=== PATIENT | female | born 1975 | race Two or more races ===

== ENCOUNTER 2018-04-24 19:16 | Emergency (ER) | payer MEDICAID ==
[~2018-04-24] VITALS: Ht 132.1 cm; Wt 56.7 kg
[2018-04-24 19:35] VITALS: BP 155/89
[2018-04-24] MEDS ORDERED: BACLOFEN 10 MG TAB PO ONE (21:15)
[2018-04-24] MEDS ORDERED: cefTRIAXone SOD 1,000 MG VL IM ONE (21:15)
== END 2018-04-24 22:19 | disposition home or self-care (01) ==
LOC: ER 19:23
DX: H66.91 Otitis media, unspecified, right ear (principal)
CPT/HCPCS: 96372; 99283; J0696

== ENCOUNTER 2018-05-09 17:34 | Emergency (ER) | payer MEDICAID ==
[~2018-05-09] VITALS: Ht 157.5 cm; Wt 56.2 kg
[2018-05-09 18:00] VITALS: BP 145/83
== END 2018-05-09 22:46 | disposition home or self-care (01) ==
LOC: ER 17:34
DX: H60.91 Unspecified otitis externa, right ear (principal)

== ENCOUNTER 2018-11-16 01:50 | Emergency (ER) | payer MEDICAID ==
[~2018-11-16] VITALS: Ht 154.9 cm; Wt 59.9 kg
[2018-11-16 03:49] VITALS: BP 148/87
[2018-11-16] MEDS: methylPREDNISolone SOD SUCC 125 MG/2 ML VL IM ONE (03:59)
== END 2018-11-16 04:04 | disposition home or self-care (01) ==
LOC: ER 01:50
DX: T78.40XA Allergy, unspecified, initial encounter (principal); H11.32 Conjunctival hemorrhage, left eye; X58.XXXA Exposure to other specified factors, initial encounter
CPT/HCPCS: 96372; 99283; J2930

== ENCOUNTER 2020-04-16 03:29 | Emergency (ER) | payer MEDICAID ==
[~2020-04-16] VITALS: Ht 160 cm; Wt 56.7 kg
[2020-04-16] MEDS ORDERED: MECLIZINE HCL 25 MG TAB ONE (03:55)
[2020-04-16] MEDS ORDERED: MECLIZINE HCL 25 MG TAB PO ONE (04:00)
[2020-04-16 05:50] LABS: Basophils # (auto) 0 10 ^3/uL (0-0.2); Basophils % (auto) 0.1 % (0.0-2.0); Eosinophils # (auto) 0 10 ^3/uL (0-0.8); Eosinophils % (auto) 0.3 % (0.0-7.0); Hematocrit 43.8 % (36.0-46.0); Hemoglobin 15.1 g/dL (12.2-16.2); Lymphocytes # (auto) 1.1 10 ^3/uL (0.4-5.4); Lymphocytes % (auto) 17.7 % (10.0-50.0); Mean Corpuscular Hemoglobin 31.8 pg (28.0-32.0); Mean Corpuscular Hgb Conc. 34.5 g/dL (32.0-36.0); Mean Corpuscular Volume 92.2 fL (80.0-100.0); Monocytes # (auto) 0.4 10 ^3/uL (0-1.3); Monocytes % (auto) 5.9 % (0.0-12.0); Neutrophils # (auto) 4.7 10 ^3/uL (1.6-8.6); Nucleated Red Blood Cells % 0.1 %; Platelet Count (auto) 219 10^3/uL (140-450); Red Blood Cells 4.76 10^6/uL (4.0-5.20); Red Cell Distribution Width 12.6 % (11.8-14.3); White Blood Cell 6.2 10^3/uL (4.4-10.8)
[2020-04-16 06:30] LABS: Albumin 3.7 g/dL (3.4-5.0); Calcium 8.8 mg/dL (8.5-10.1); Magnesium 2.4 mg/dL (1.6-2.6); Potassium 3.8 mmol/L (3.5-5.1)
[2020-04-16 06:34] LABS: BUN/Creatinine Ratio 13.7; Bilirubin, Total 0.2 mg/dL (0.2-1.0); Total Protein 7.7 g/dL (6.4-8.2)
[2020-04-16] MEDS ORDERED: SODIUM CHLORIDE 0.9% 1,000 ML IV ONE ×2 (07:00)
[2020-04-16 08:56] VITALS: BP 125/77
== END 2020-04-16 09:51 | disposition home or self-care (01) ==
LOC: ER 03:41
DX: R42 Dizziness and giddiness (principal); H93.19 Tinnitus, unspecified ear
CPT/HCPCS: 36415; 70450; 80053; 83735; 85025; 93005; 96360; 99285; J7030; J8597

== ENCOUNTER 2021-04-03 14:45 | Emergency (ER) | payer MEDICAID ==
[~2021-04-03] VITALS: Ht 152.4 cm; Wt 63.5 kg
[2021-04-03 17:14] VITALS: BP 129/85
== END 2021-04-03 17:29 | disposition home or self-care (01) ==
LOC: ER 14:45
DX: J01.90 Acute sinusitis, unspecified (principal)
CPT/HCPCS: 71045

== ENCOUNTER 2022-10-04 19:56 | Emergency (ER) | payer MEDICAID ==
[~2022-10-04] VITALS: Ht 144.8 cm; Wt 61.5 kg
[2022-10-04 21:32] LABS: Urine Bacteria NONE SEEN /hpf (None Seen); Urine Blood 3+ /uL (Negative); Urine Specific Gravity 1.013 (1.001-1.035); Urine WBC 227 /hpf (0 - 5)
[2022-10-04 22:10] VITALS: BP 158/94
[2022-10-04] MEDS ORDERED: cefTRIAXone SOD 1,000 MG VL IM ONE (22:30)
[2022-10-04] MEDS ORDERED: NITR-87 PO ×2 (22:54→23:25)
== END 2022-10-05 00:20 | disposition home or self-care (01) ==
LOC: ER 19:56
DX: N39.0 Urinary tract infection, site not specified (principal)
CPT/HCPCS: 81001; 96372; 99283; J0696

== ENCOUNTER 2024-05-05 20:47 | Inpatient (IN) | payer MEDICAID, OTHER ==
[~2024-05-05] VITALS: Ht 162.6 cm; Wt 62.8 kg
[~2024-05-05 20:47] MED LIST: NITR-87 PO
--- NOTE | 2024-05-05 21:23 | ED.PDOC ---
GI ASSESSMENT HPI Comments 49 year old female came to ER due to abdominal pain. Patient states she is currently being treated for UTI with Augmentin. States she is now on her 8th day of a 12 day regimen. For the past 3 days, she has been having abdominal pain, epigastric associated with abdominal distention especially after meals or whenever she takes her antibiotics. She denies any nausea, vomiting or changes in bowel habits. Denies any abdominal surgeries, Chief Complaint: Abdominal Pain Time Seen by MD: 21:22 Primary Care Provider: UNKNOWN Reviewed Notes: Nurses Notes Allergies: Coded Allergies: NO KNOWN ALLERGIES (Unverified , 04/24/18) Home Meds Active Scripts Nitrofurantoin Monohydrate Mac (Macrobid) 100 Mg Cap, 100 MG PO BID for 5 Days, #10 CAP Prov:BRO BANUELOS 10/04/22 Information Source: Patient Mode of Arrival: Ambulatory Timing: Days Duration: Intermittent Prehospital treatment: None Quality: Aching Vomitus: None Stool: Normal Severity: Moderate Recent: Antibiotics Recent Hx of: None Pain Location: Epigastric Modifying Factors: Nothing Associated sign and symptoms: Abdominal Pain Past Medical History PAST MEDICAL HISTORY: UTI'S Surgical History: Denies all surgeries BANKING PIN ADJUSTER History: No Pertinent BANKING PIN ADJUSTER History Family History Family History: Reviewed,noncontributory to illness Social History Smoker: Non-Smoker Alcohol: Denies ETOH Use Drugs: Denies Drug Use Lives In: Home Constitutional: denies: chills, diaphoresis, fatigue, fever, malaise, sweats, weakness, others EENTM: denies: blurred vision, double vision, ear bleeding, ear discharge, ear drainage, ear pain, ear ringing, eye pain, eye redness, hearing loss, mouth pain, mouth swelling, nasal discharge, nose bleeding, nose congestion, nose pain, photophobia, tearing, throat pain, throat swelling, voice changes, others Respiratory: denies: cough, hemoptysis, orthopnea, SOB at rest, shortness of breath, SOB with excertion, stridor, wheezing, others Cardiovascular: denies: chest pain, dizzy spells, diaphoresis, Dyspnea on exertion, edema, irregular heart beat, left arm pain, lightheadedness, palpitations, PND, syncope, others Gastrointestinal: reports: abdomen distended, abdominal pain; denies: blood streaked bowels, constipated, diarrhea, dysphagia, difficulty swallowing, hematemesis, melena, nausea, poor appetite, poor fluid intake, rectal bleeding, rectal pain, vomiting, others Neurological: denies: dizziness, fainting, headache, left sided numbness, left sided weakness, numbness, paresthesia, pre-existing deficit, right sided numbness, right sided weakness, seizure, speech problems, tingling, tremors, weakness, others Musculoskeletal: denies: back pain, gout, joint pain, joint swelling, muscle pain, muscle stiffness, neck pain, others Integumetry: denies: bruises, change in color, change in hair/nails, dryness, laceration, lesions, lumps, rash, wounds, others Allergic/Immunocompromised: denies: Difficulty Healing, Frequent Infections, Hives, Itching, others Hematologic/Lymphatic: denies: anemia, blood clots, easy bleeding, easy bruising, swollen glands, others Endocrine: denies: excessive hunger, excessive sweating, excessive thirst, excessive urination, flushing, intolerance to cold, intolerance to heat, unexplained weight gain, unexplained weight loss, others Psychiatric: denies: anxiety, bipolar disorder, depression, hopeless, panic disorder, schizophrenia, sleepless, suicidal, others Physical Exam General Appearance: No Apparent Distress, Normal HEENT: Normal ENT Inspection, Pharynx Normal, TMs Normal Neck: Full Range of Motion, Non-Tender, Normal, Normal Inspection Respiratory: Chest Non-Tender, Lungs Clear, No Accessory Muscle Use, No Respiratory Distress, Normal Breath Sounds Cardiovascular: No Edema, No JVD, No Murmur, No Gallop, Normal Peripheral Pulses, Regular Rate/Rhythm Breast Exam: Deferred Gastrointestinal: Distended, Epigastric, No Organomegaly, No Pulsatile Mass, Normal Bowel Sounds, Soft, Tenderness Genitalia: Deferred Pelvic: Deferred Rectal: Deferred Extremities: No calf tenderness, Normal capillary refill, Normal inspection, Normal range of motion, Non-tender, No pedal edema Musculoskeletal : Apperance: Normal Neurologic: Alert, multicraft operator II-XII nml as Tested, No Motor Deficits, Normal Affect, Normal Mood, No Sensory Deficits Cerebellar Function: Normal Reflexes: Normal Skin: Dry, Normal Color, Warm Lymphatic: No Adenopathy Was a procedure done? Was a procedure done?: No GI differential Dx Differential Diagnosis: Cholecystitis, Diverticular disease, Gastritis/PUD, Gastroenteritis, Pancreatitis, UTI, Urolithiasis, Electrolyte Imbalance, Food Poisoning X-Ray, Labs, Meds, VS Vital Signs Date Time Temp Pulse Resp B/P (MAP) Pulse Ox O2 Delivery O2 Flow Rate FiO2 05/06/24 00:07 98.4 84 16 147/81 (103) 99 98.4 05/06/24 00:07 84 16 99 Room Air 05/05/24 21:20 98.4 84 18 156/97 (116) 99 Lab Test 05/05/24 21:20 05/05/24 21:07 Range/Units Urine Color Colorless Yellow Urine Clarity Clear Clear Urine pH 7.0 5.0-9.0 Urine Specific [place] 1.009 1.001-1.035 Urine Protein Negative Negative Urine Ketones Negative Negative Urine Blood 1+ H Negative /uL Urine Nitrite Negative Negative Urine Bilirubin Negative Negative Urine Urobilinogen Normal Negative mg/dL Urine Leukocyte Esterase Negative Negative /uL Urine RBC 8 0 - 4 /hpf Urine WBC 1 0 - 5 /hpf Urine Squamous Epithelial Cells Few <5 /hpf Urine Bacteria Few H None Seen /hpf Urine Glucose Normal Normal mg/dL White Blood Count 9.6 4.4-10.8 10^3/uL Red Blood Count 4.39 4.0-5.20 10^6/uL Hemoglobin 14.4 12.2-16.2 g/dL Hematocrit 40.4 36.0-46.0 % Mean Corpuscular Volume 92.1 80.0-100.0 fL Mean Corpuscular Hemoglobin 32.9 H 28.0-32.0 pg Mean Corpuscular Hemoglobin Concent 35.7 32.0-36.0 g/dL Red Cell Distribution Width 12.6 11.8-14.3 % Platelet Count 305 140-450 10^3/uL Mean Platelet Volume 8.0 6.9-10.8 fL Neutrophils (%) (Auto) 58.7 37.0-80.0 % Lymphocytes (%) (Auto) 31.7 10.0-50.0 % Monocytes (%) (Auto) 6.9 0.0-12.0 % Eosinophils (%) (Auto) 2.2 0.0-7.0 % Basophils (%) (Auto) 0.5 0.0-2.0 % Neutrophils # (Auto) 5.6 1.6-8.6 10 ^3/uL Lymphocytes # (Auto) 3.1 0.4-5.4 10 ^3/uL Monocytes # (Auto) 0.7 0-1.3 10 ^3/uL Eosinophils # (Auto) 0.2 0-0.8 10 ^3/uL Basophils # (Auto) 0 0-0.2 10 ^3/uL Nucleated Red Blood Cells 0.2 % Sodium Level 143 136-145 mmol/L Potassium Level 3.2 L 3.5-5.1 mmol/L Chloride Level 108 H 98-107 mmol/L Carbon Dioxide Level 26 20-31 mmol/L Anion Gap 9 5-15 Blood Urea Nitrogen 11 9-23 mg/dL Creatinine 0.93 0.550-1.02 mg/dL Glomerular Filtration Rate Calc 76 >90 mL/min BUN/Creatinine Ratio 11.8 10.0-20.0 Serum Glucose 106 74-106 mg/dL Calcium Level 9.5 8.7-10.4 mg/dL Total Bilirubin 0.3 0.2-1.0 mg/dL Aspartate Amino Transferase (AST) 19 13-40 U/L Alanine Aminotransferase (ALT) 20 7-40 U/L Alkaline Phosphatase 65 46-116 U/L Total Protein 6.9 5.7-8.2 g/dL Albumin 4.0 3.2-4.8 g/dL Lipase 46 12-53 U/L Current Medications Medications (Trade) Dose Ordered Sig/Debbie Route Start Time Stop Time Status Last Admin Sodium Chloride 1,000 ml @ 1,000 mls/hr Q1H ONCE IV 05/05/24 21:30 05/05/24 22:29 DC 05/06/24 00:08 Ondansetron HCl (Zofran) 4 mg ONCE ONCE IV 05/05/24 21:30 05/05/24 21:31 DC 05/06/24 00:09 Famotidine (Pepcid Injection) 20 mg ONCE ONCE IV 05/05/24 21:30 05/05/24 21:31 DC 05/06/24 00:09 Ketorolac Tromethamine (Toradol Injection) 15 mg ONCE ONCE IV 05/05/24 21:30 05/05/24 21:31 DC 05/06/24 00:10 Time of 1ST Reevaluation: 21:16 Reevaluation 1ST: Unchanged Patient Education/Counseling: Diagnosis, Treatment Family Education/Counseling: No Family Present Departure 1 Departure Time of Disposition: 04:31 (Patient presented with abdominal pain that was concerning for possible appendicits, gastritis, cholecystitis, colitis, gastroenteritis, sbo, or orther possible surgical emergency. Data: 1. I ordered and reviewed the result of at least 3 labs including a CBC, BMP, and Urinalysis. 2. I independently interpreted the following tests: CT Abdoment and Pelvis is concerning for obstructiong ureteral strone .Risk:This patient has a high risk of morbidity due to further diagnostic testing or treatment and may suffer from an acute abdominal process disorder. Workup reveals and patient should be admitted for further workup. and possible expert consultation. ) Impression: Primary Impression: Ureteral stone with hydronephrosis Disposition: ADMITTED INPATIENT Admit to: Med Surg Condition: Serious Critical Care Note Critical Care Time?: Yes Critical care comment: Intractable abdominal pain Authorized and Performed by: Lizzette Zamudio MD Total critical care time: Approximately 39 minutes Due to a high probability of clinically significant, life threatening deter ioration, the patient required my highest level of preparedness to intervene emergently and I personally spent this critical care time directly and personally managing the patient. This critical care time included obtaining a history; examining the patient; pulse oximetry; ordering and review of studies; arranging urgent treatment with development of a management plan; evaluation of patient's response to treatment; frequent reassessment; and, discussions with other providers. This critical care time was performed to assess and manage the high probability of imminent, life-threatening deterioration that could result in multi-organ fa ilure. It was exclusive of separately billable procedures and treating other patients and teaching time. Please see my other sections and the rest of the note for further information on patient assessment and treatment. Stability Stability form required: No Heart Score Heart Score: Heart Score Response (Comments) Value History N/A 0 EKG N/A 0 Age N/A 0 Risk Factors N/A 0 Troponin N/A 0 Total 0 I personally scribed for LIZZETTE ZAMUDIO MD ([email or web address]) on 05/05/24 at 21:23. Electronically submitted by Kem Sahni ([email or web address]). LIZZETTE ZAMUDIO MD May 05, 2024 21:23
[2024-05-05 21:51] LABS: Basophils # (auto) 0 10 ^3/uL (0-0.2); Basophils % (auto) 0.5 % (0.0-2.0); Eosinophils # (auto) 0.2 10 ^3/uL (0-0.8); Eosinophils % (auto) 2.2 % (0.0-7.0); Hematocrit 40.4 % (36.0-46.0); Hemoglobin 14.4 g/dL (12.2-16.2); Lymphocytes # (auto) 3.1 10 ^3/uL (0.4-5.4); Lymphocytes % (auto) 31.7 % (10.0-50.0); Mean Corpuscular Hemoglobin 32.9 pg (28.0-32.0); Mean Corpuscular Hgb Conc. 35.7 g/dL (32.0-36.0); Mean Corpuscular Volume 92.1 fL (80.0-100.0); Monocytes # (auto) 0.7 10 ^3/uL (0-1.3); Monocytes % (auto) 6.9 % (0.0-12.0); Neutrophils # (auto) 5.6 10 ^3/uL (1.6-8.6); Neutrophils % (auto) 58.7 % (37.0-80.0); Nucleated Red Blood Cells % 0.2 %; Platelet Count (auto) 305 10^3/uL (140-450); Red Blood Cells 4.39 10^6/uL (4.0-5.20); Red Cell Distribution Width 12.6 % (11.8-14.3); White Blood Cell 9.6 10^3/uL (4.4-10.8)
[2024-05-05 21:54] LABS: Urine Bacteria FEW /hpf (None Seen); Urine Blood 1+ /uL (Negative); Urine Clarity Clear (Clear); Urine Color Colorless (Yellow); Urine Protein, UAD Negative (Negative); Urine Specific Gravity 1.009 (1.001-1.035); Urine Urobilinogen Normal (Negative); Urine WBC 1 /hpf (0 - 5)
[2024-05-05 22:06] LABS: Alanine Aminotransferase 20 U/L (7-40); Alkaline Phosphatase 65 U/L (46-116); Aspartate Aminotransferase 19 U/L (13-40); BUN/Creatinine Ratio 11.8 (10.0-20.0); Blood Urea Nitrogen 11 mg/dL (9-23); Calcium 9.5 mg/dL (8.7-10.4); Chloride 108 mmol/L (98-107); Glucose 106 mg/dL (74-106); Lipase 46 U/L (12-53); Potassium 3.2 mmol/L (3.5-5.1); Sodium 143 mmol/L (136-145)
[2024-05-05 22:07] LABS: Bilirubin, Total 0.3 mg/dL (0.2-1.0); Total Protein 6.9 g/dL (5.7-8.2)
[2024-05-05 22:14] LABS: Anion Gap 9 (5-15); Carbon Dioxide 26 mmol/L (20-31)
[2024-05-06] VITALS (8 sets, daily range): BP systolic 100–139; BP diastolic 63–97; PULSE 64–99; RESP 18–19; TEMP 97.7–98.3; O2SAT 97–100
[2024-05-06] MEDS: SODIUM CHLORIDE 0.9% 1,000 ML IV ONE (00:08)
[2024-05-06] MEDS: FAMOTIDINE (10MG/ML) 2ML VL IV ONE (00:09)
[2024-05-06] MEDS: ONDANSETRON HCL 4 MG/2 ML VIAL IV ONE (00:09)
[2024-05-06] MEDS: KETOROLAC TROMETH 30 MG/ML 1ML VIAL IV ONE (00:10)
--- NOTE | 2024-05-06 03:06 | DVH ---
Examination: KUB Clinical Indication: abdominal pain. Comparison: None. Technique: Single frontal view of the abdomen was obtained. Findings: The bowel gas pattern appears unremarkable. No overt pneumoperitoneum is noted. An elongated 11 x 6 mm radiopacity adjacent to the transverse process of the L3 vertebra probable rig ht renal pelvic or proximal ureteric calculus. Another 8 mm radiopacity probably in the region of th e left renal lower pole calyx. Another differential could be fecalith. No organomegaly. There is no acute osseous abnormality. Impression: An elongated 11 x 6 mm radiopacity adjacent to the transverse process of the L3 vertebra probable right renal pelvic or proximal ureteric calculus. Another 8 mm radiopacity probably in the region of the left renal lower pole calyx. Another differential could be fecalith. No obvious radi opacity in the region of the urinary bladder. Suggest further evaluation with noncontrast CT abdomen . Nonobstructive bowel gas pattern. Electronically Signed 05/06/2024 02:57 Idalia Tsai
--- NOTE | 2024-05-06 04:18 | DVH ---
Examination: ABPL CLINICAL INDICATION: better evaluate x-ray findings COMPARISON: None. CONTRAST USED: None. TECHNIQUE: A plain CT study of the abdomen and pelvis is performed. The examination was performed w ith [address] scan done according to ALARA (As Low as Reasonably Achievable). Multiplana r reconstructions were obtained. FINDINGS: CT ABDOMEN: Lung Base: The evaluation of lung bases demonstrates no focal infiltrates or pleural effusion. Plating Department Helper obasal dependent densities are seen in both lungs. Unenhanced Liver: The liver is normal in size. Mild hepatic steatosis. There is no intrahepatic bilia ry radicle dilatation. Gallbladder: The gallbladder is distended and shows a 23 mm sized hyperdense lamellated calculus wit hin. The common bile duct is not dilated. Unenhanced Pancreas: The pancreas is normal in size and shape. No focal lesion is seen within. Th e peripancreatic fat-planes are normal. Unenhanced Spleen: The spleen is normal in size and does not show any focal abnormality. Retroperitoneum: Both adrenal glands are normal in size and morphology in this unenhanced CT scan. There is no significant retroperitoneal lymphadenopathy. The kidneys are normal in size with no hydr onephrosis. A 6 mm obstructing calculus is seen in the right upper ureter causing mild upstream hydro ureteronephrosis. Mild perinephric fat stranding is noted on the right side. Vessels: Aorta, IVC and the mesenteric vessels cannot be commented in this unenhanced CT scan. Stomach and Bowel: The bowel loops are unremarkable. There is no ascites. Small paraumbilical herni a is noted containing omental fat, size of the defect is 6 mm. Skeletal System: Mild degenerative changes are seen in the thoracolumbar spine. CT PELVIS: Appendix: The appendix is unremarkable in appearance. Colon: Multiple tiny diverticuli are seen along the ascending, transverse, descending, sigmoid colon and rectum. Bladder: The urinary bladder is unremarkable. Pelvic Organs: Uterus and both ovaries appear normal. No pelvic lymphadenopathy is identified. No abn ormal fluid collection is seen. IMPRESSION: 1. No abdominal mass or adenopathy. 2. No ascites. 3. No free air or inflammatory changes. 4. Obstructing right upper ureteric calculus causing mild back pressure changes. 5. Mild hepatic steatosis. 6. Small paraumbilical hernia is noted containing omental fat. 7. Colonic diverticulosis without evidence of diverticulitis. 8. Cholelithiasis without evidence of cholecystitis. Electronically Signed 05/06/2024 04:08 Idalia Tsai
[2024-05-06] MEDS: MORPHINE SULFATE 4 MG/ML SYR/VIAL IV ONE (04:30)
[2024-05-06] MEDS ORDERED: ONDANSETRON HCL 4 MG/2 ML VIAL IV PRN (06:30)
[2024-05-06] MEDS ORDERED: MORPHINE SULFATE INJ 2 MG/ml SYRG IV PRN ×2 (06:30)
[2024-05-06] MEDS ORDERED: ACETAMINOPHEN 325 MG TAB PO PRN (06:30)
[2024-05-06] MEDS ORDERED: NITROGLYCERIN 0.4 MG SL TAB SL PRN (06:30)
--- NOTE | 2024-05-06 06:34 | DVHHP2 ---
Admitting Diagnosis: Subjective: Carmen Bradshaw, a 49-year-old female, presents with a chief complaint of abdominal pain. She reports that the pain has been present for the past three days, primarily in the epigastric region, and is accompanied by some abdominal distension. The pain worsens after meals. She denies experiencing any nausea, vomiting, or recent abdominal surgeries. Carmen recently began a 12-day course of Augmentin for a urinary tract infection, which she has been taking for the past eight days. Her past medical history is significant for urinary tract infections, but she has no significant past surgical history. She denies the use of alcohol or other drugs. Allergies: Coded Allergies: NO KNOWN ALLERGIES (Unverified , 04/24/18) Home Meds Active Scripts Nitrofurantoin Monohydrate Mac (Macrobid) 100 Mg Cap, 100 MG PO BID for 5 Days, #10 CAP Prov:LAKISHABRO Kamilla MIXOLOGIST 10/04/22 Vital Signs Vital Signs Date Time Temp Pulse Resp B/P (MAP) Pulse Ox O2 Delivery O2 Flow Rate FiO2 05/06/24 05:49 97.7 80 18 137/83 (101) 99 97.7 05/06/24 00:07 Room Air Physical Exam Objective: - Vital Signs: - Temperature: 98.4F - Pulse: 84 bpm, later noted as 99 bpm - Respiratory rate: 16 breaths per minute - Blood pressure: 147/81 mmHg - Physical Examination: - General: 49-year-old female presenting with abdominal pain - Abdomen: Epigastric pain, distension, pain exacerbated post meals - Review of Systems: 14 organ systems reviewed, all negative - Diagnostic Test Results and Labs: - Laboratory results: N/A - Imaging results: N/A - Potassium level: 3.2 (date of lab test not documented) Results Labs Test 05/05/24 21:20 05/05/24 21:07 Range/Units Urine Color Colorless Yellow Urine Clarity Clear Clear Urine pH 7.0 5.0-9.0 Urine Specific [place] 1.009 1.001-1.035 Urine Protein Negative Negative Urine Ketones Negative Negative Urine Blood 1+ H Negative /uL Urine Nitrite Negative Negative Urine Bilirubin Negative Negative Urine Urobilinogen Normal Negative mg/dL Urine Leukocyte Esterase Negative Negative /uL Urine RBC 8 0 - 4 /hpf Urine WBC 1 0 - 5 /hpf Urine Squamous Epithelial Cells Few <5 /hpf Urine Bacteria Few H None Seen /hpf Urine Glucose Normal Normal mg/dL White Blood Count 9.6 4.4-10.8 10^3/uL Red Blood Count 4.39 4.0-5.20 10^6/uL Hemoglobin 14.4 12.2-16.2 g/dL Hematocrit 40.4 36.0-46.0 % Mean Corpuscular Volume 92.1 80.0-100.0 fL Mean Corpuscular Hemoglobin 32.9 H 28.0-32.0 pg Mean Corpuscular Hemoglobin Concent 35.7 32.0-36.0 g/dL Red Cell Distribution Width 12.6 11.8-14.3 % Platelet Count 305 140-450 10^3/uL Mean Platelet Volume 8.0 6.9-10.8 fL Neutrophils (%) (Auto) 58.7 37.0-80.0 % Lymphocytes (%) (Auto) 31.7 10.0-50.0 % Monocytes (%) (Auto) 6.9 0.0-12.0 % Eosinophils (%) (Auto) 2.2 0.0-7.0 % Basophils (%) (Auto) 0.5 0.0-2.0 % Neutrophils # (Auto) 5.6 1.6-8.6 10 ^3/uL Lymphocytes # (Auto) 3.1 0.4-5.4 10 ^3/uL Monocytes # (Auto) 0.7 0-1.3 10 ^3/uL Eosinophils # (Auto) 0.2 0-0.8 10 ^3/uL Basophils # (Auto) 0 0-0.2 10 ^3/uL Nucleated Red Blood Cells 0.2 % Sodium Level 143 136-145 mmol/L Potassium Level 3.2 L 3.5-5.1 mmol/L Chloride Level 108 H 98-107 mmol/L Carbon Dioxide Level 26 20-31 mmol/L Anion Gap 9 5-15 Blood Urea Nitrogen 11 9-23 mg/dL Creatinine 0.93 0.550-1.02 mg/dL Glomerular Filtration Rate Calc 76 >90 mL/min BUN/Creatinine Ratio 11.8 10.0-20.0 Serum Glucose 106 74-106 mg/dL Calcium Level 9.5 8.7-10.4 mg/dL Total Bilirubin 0.3 0.2-1.0 mg/dL Aspartate Amino Transferase (AST) 19 13-40 U/L Alanine Aminotransferase (ALT) 20 7-40 U/L Alkaline Phosphatase 65 46-116 U/L Total Protein 6.9 5.7-8.2 g/dL Albumin 4.0 3.2-4.8 g/dL Lipase 46 12-53 U/L Plan Assessment & Plan: Assessment and Plan: 1. Abdominal pain and epigastric distension - Continue monitoring the patient's symptoms and response to treatment - Consider further evaluation if pain persists or worsens 2. Urinary tract infection (UTI) - Currently on Augmentin for 12-day regimen (day 8) - Start patient on IV antibiotics for better control - Monitor for improvement and adjust treatment as needed 3. Urethral stone with hydronephrosis - Admit patient to the hospital for further management - Obtain urology consult for evaluation and treatment options 4. Dehydration - Start patient on IV hydration to address fluid imbalance - Monitor fluid intake and output, and adjust treatment as needed 5. Hypokalemia - Patient's potassium level is 3.2, initiate potassium replacement therapy - Monitor potassium levels and adjust treatment as needed 6. Prognosis - Guarded prognosis, continue to monitor patient's response to treatment and overall condition 7. Past medical and surgical history - Significant for UTI, non-significant surgical history - Family history non-contributory, social history negative for alcohol or drug use 8. Physical examination and laboratory findings - Vital signs: Temperature 98.4, pulse 84, respiratory rate 16, blood pressure 147/81, pulse oximetry 99 - 14-organ review of systems negative, 12-organ physical examination non- significant - Review and monitor laboratory results and imaging studies as needed Plan discussed with: Patient JELENA AVALOS MD May 06, 2024 06:34
[2024-05-06] MEDS: TAMSULOSIN HYDROCHLORIDE 0.4 MG CAP PO ONE (06:38)
[2024-05-06] MEDS: SODIUM CHLORIDE 0.9% 1,000 ML IV SCH (06:41)
[2024-05-06] MEDS: HYDROcodone-ACET 5/325MG TAB PO PRN (14:08)
[2024-05-06] MEDS: TAMSULOSIN HYDROCHLORIDE 0.4 MG CAP PO SCH (18:02)
--- NOTE | 2024-05-06 20:38 | DVHHP2 ---
Admitting Diagnosis: Abdominal pain History of Present Illness 49 yo female patient with hx of GERD and HLD c/o abdominal pain x 3 days most likely related to UTI and ureteral stone. Patient denies any other symptoms. Patient reports that she is currently being treated for a UTI and has been taking Augmentin for 8 days. Patient was found to be dehydrated. While in the emergency department the patient was evaluated by the provider, As per provider: Labs, vital signs, and imagining monitored. Patient will be admitted for further evaluation and treatment. I discussed admission with the patient/family and is in agreement to treatment plan. Patient Family History: Patient reports no known family medical history. Allergies: Coded Allergies: NO KNOWN ALLERGIES (Unverified , 04/24/18) Home Meds Active Scripts Nitrofurantoin Monohydrate Mac (Macrobid) 100 Mg Cap, 100 MG PO BID for 5 Days, #10 CAP Prov:BRO BANUELOS 10/04/22 Current Medications Current Medications Medications (Trade) Dose Ordered Sig/Debbie Route PRN Reason Start Time Stop Time Status Last Admin Sodium Chloride 1,000 ml @ 120 mls/hr Q8H20M IV 05/06/24 06:30 05/06/24 07:41 Acetaminophen (Tylenol Tablet) 325 mg Q4HP PRN PO MILD PAIN (1-3 PAIN SCALE) 05/06/24 06:30 Acetaminophen/ Hydrocodone Bitart ([place] 5/325MG Tab) 1 tab Q4HP PRN PO MODERATE PAIN (4-6 PAIN SCALE) 05/06/24 06:30 05/06/24 14:08 Ondansetron HCl (Zofran) 4 mg Q4HP PRN IV NAUSEA / VOMITING 05/06/24 06:30 Morphine Sulfate 2 mg Q4HPRN PRN IV SEVERE PAIN (7-10 PAIN SCALE) 05/06/24 06:30 Nitroglycerin (Ntrostat Sublingual) 0.4 mg Q5MINP PRN SL FOR CHEST PAIN 05/06/24 06:30 Morphine Sulfate 2 mg Q30M PRN IV FOR CHEST PAIN 05/06/24 06:30 Tamsulosin HCl (Flomax) 0.4 mg QPM PO 05/06/24 18:00 05/06/24 18:02 Review of Systems Constitutional: denies chills, denies fever, denies malaise Eyes: denies eye pain, denies vision change ENT: denies ear pain, denies headache, denies nasal congestion, denies painful swallowing, denies voice change Cardiovascular: denies chest pain, denies edema, denies orthopnea, denies palpitations, denies paroxysmal nocturnal dyspnea Respiratory: denies cough, denies shortness of breath Gastrointestinal: denies constipation, denies diarrhea, denies nausea, denies vomiting Genitourinary: denies dysuria, denies frequent urination, denies urethral discharge Musculoskeletal: denies back pain, denies joint pain, denies muscle pain Skin: denies bruising, denies itching, denies rash Neurological: denies focal weakness, denies headache, denies sensory changes Psychiatric: denies anxiety, denies depression Endocrine: denies polydipsia, denies polyuria Hematologic/Lymphatic: denies easy bleeding, denies easy bruising, denies enlarged lymph nodes Allergic/Immunologic: denies allergy, denies hives Vital Signs Vital Signs Date Time Temp Pulse Resp B/P (MAP) Pulse Ox O2 Delivery O2 Flow Rate FiO2 05/06/24 17:34 98.0 99 18 139/97 (111) 97 98.0 05/06/24 17:18 Room Air* 0 21 Physical Exam General Appearance: alert, no distress HEENT: EOMI, PERRLA, normal external inspect of ears, no icterus, no nasal drainage Neck: no carotid bruit, no jugular venous distention (JVD), no lymphadenopathy Chest: normal thorax Respiratory: clear to auscultation, normal air movement Cardiovascular: regular rate and rhythm, no diastolic murmur, no jugular venous distention (JVD), no rub, no systolic murmur Abdominal: soft, no hepatomegaly, no mass, no splenomegaly, no tenderness Genitourinary: grossly normal external Musculoskeletal: no joint tenderness, no swelling Extremities: normal pulses, no calf tenderness, no clubbing, no cyanosis, no edema Skin: no bruising, no jaundice, no rash Neurological: alert, No focal deficit Results Labs Test 05/05/24 21:20 05/05/24 21:07 Range/Units Urine Color Colorless Yellow Urine Clarity Clear Clear Urine pH 7.0 5.0-9.0 Urine Specific [place] 1.009 1.001-1.035 Urine Protein Negative Negative Urine Ketones Negative Negative Urine Blood 1+ H Negative /uL Urine Nitrite Negative Negative Urine Bilirubin Negative Negative Urine Urobilinogen Normal Negative mg/dL Urine Leukocyte Esterase Negative Negative /uL Urine RBC 8 0 - 4 /hpf Urine WBC 1 0 - 5 /hpf Urine Squamous Epithelial Cells Few <5 /hpf Urine Bacteria Few H None Seen /hpf Urine Glucose Normal Normal mg/dL White Blood Count 9.6 4.4-10.8 10^3/uL Red Blood Count 4.39 4.0-5.20 10^6/uL Hemoglobin 14.4 12.2-16.2 g/dL Hematocrit 40.4 36.0-46.0 % Mean Corpuscular Volume 92.1 80.0-100.0 fL Mean Corpuscular Hemoglobin 32.9 H 28.0-32.0 pg Mean Corpuscular Hemoglobin Concent 35.7 32.0-36.0 g/dL Red Cell Distribution Width 12.6 11.8-14.3 % Platelet Count 305 140-450 10^3/uL Mean Platelet Volume 8.0 6.9-10.8 fL Neutrophils (%) (Auto) 58.7 37.0-80.0 % Lymphocytes (%) (Auto) 31.7 10.0-50.0 % Monocytes (%) (Auto) 6.9 0.0-12.0 % Eosinophils (%) (Auto) 2.2 0.0-7.0 % Basophils (%) (Auto) 0.5 0.0-2.0 % Neutrophils # (Auto) 5.6 1.6-8.6 10 ^3/uL Lymphocytes # (Auto) 3.1 0.4-5.4 10 ^3/uL Monocytes # (Auto) 0.7 0-1.3 10 ^3/uL Eosinophils # (Auto) 0.2 0-0.8 10 ^3/uL Basophils # (Auto) 0 0-0.2 10 ^3/uL Nucleated Red Blood Cells 0.2 % Sodium Level 143 136-145 mmol/L Potassium Level 3.2 L 3.5-5.1 mmol/L Chloride Level 108 H 98-107 mmol/L Carbon Dioxide Level 26 20-31 mmol/L Anion Gap 9 5-15 Blood Urea Nitrogen 11 9-23 mg/dL Creatinine 0.93 0.550-1.02 mg/dL Glomerular Filtration Rate Calc 76 >90 mL/min BUN/Creatinine Ratio 11.8 10.0-20.0 Serum Glucose 106 74-106 mg/dL Calcium Level 9.5 8.7-10.4 mg/dL Total Bilirubin 0.3 0.2-1.0 mg/dL Aspartate Amino Transferase (AST) 19 13-40 U/L Alanine Aminotransferase (ALT) 20 7-40 U/L Alkaline Phosphatase 65 46-116 U/L Total Protein 6.9 5.7-8.2 g/dL Albumin 4.0 3.2-4.8 g/dL Lipase 46 12-53 U/L Plan 1. Acute cystitis without hematuria Monitor, flomax 2. Ureteral stone with hydronephrosis Monitor, urology consult, prn pain meds 3. Dehydration Monitor, IV fluids 4. Hypokalemia Monitor, replace electrolytes 5. HLD Monitor, restart home meds, DVT prophylaxis, PPI Plan discussed with: Patient, Other VERA DHILLON NP May 06, 2024 20:38
[2024-05-07] VITALS (8 sets, daily range): BP systolic 92–140; BP diastolic 61–90; PULSE 73–94; RESP 16–20; TEMP 97.3–98.4; O2SAT 96–99
[2024-05-07 05:14] LABS: Basophils # (auto) 0 10 ^3/uL (0-0.2); Basophils % (auto) 0.4 % (0.0-2.0); Eosinophils # (auto) 0.2 10 ^3/uL (0-0.8); Eosinophils % (auto) 2.1 % (0.0-7.0); Hematocrit 36.3 % (36.0-46.0); Lymphocytes # (auto) 2.6 10 ^3/uL (0.4-5.4); Mean Corpuscular Hemoglobin 32.8 pg (28.0-32.0); Mean Corpuscular Hgb Conc. 35.7 g/dL (32.0-36.0); Mean Corpuscular Volume 91.8 fL (80.0-100.0); Monocytes # (auto) 0.7 10 ^3/uL (0-1.3); Monocytes % (auto) 7.4 % (0.0-12.0); Neutrophils # (auto) 5.9 10 ^3/uL (1.6-8.6); Neutrophils % (auto) 62.1 % (37.0-80.0); Nucleated Red Blood Cells % 0.1 %; Platelet Count (auto) 271 10^3/uL (140-450); Red Blood Cells 3.95 10^6/uL (4.0-5.20); Red Cell Distribution Width 12.6 % (11.8-14.3); White Blood Cell 9.4 10^3/uL (4.4-10.8)
[2024-05-07 05:32] LABS: Alanine Aminotransferase 19 U/L (7-40); Albumin 3.4 g/dL (3.2-4.8); Alkaline Phosphatase 51 U/L (46-116); Anion Gap 8 (5-15); Aspartate Aminotransferase 13 U/L (13-40); Blood Urea Nitrogen 12 mg/dL (9-23); Calcium 8.6 mg/dL (8.7-10.4); Carbon Dioxide 22 mmol/L (20-31); Chloride 113 mmol/L (98-107); Glucose 101 mg/dL (74-106); Potassium 3.9 mmol/L (3.5-5.1); Sodium 143 mmol/L (136-145)
[2024-05-07 05:33] LABS: Bilirubin, Total 0.4 mg/dL (0.2-1.0); Total Protein 5.8 g/dL (5.7-8.2)
--- NOTE | 2024-05-07 08:34 | DVHINCON2 ---
Date of service: May 07, 2024 Referring Physician hospitalist Reason for Consultation kidney stone History of Present Illness History Source: Patient, MD Notes Exam Limitations: No limitations HPI 49 year old female came to ER due to abdominal pain. Patient states she is currently being treated for UTI with Augmentin. States she is now on her 8th day of a 12 day regimen. For the past 3 days, she has been having abdominal pain, epigastric associated with abdominal distention especially after meals or whenever she takes her antibiotics. She denies any nausea, vomiting or changes in bowel habits. Denies any abdominal surgeries, Home Meds Active Scripts Nitrofurantoin Monohydrate Mac (Macrobid) 100 Mg Cap, 100 MG PO BID for 5 Days, #10 CAP Prov:LAKISHABRO Kamilla [employer] 10/04/22 Past Medical History Patient Family History: Patient reports no known family medical history. Review of Systems Genitourinary: Pain H&P Exam Vital Signs Vital Signs Date Time Temp Pulse Resp B/P (MAP) Pulse Ox O2 Delivery O2 Flow Rate FiO2 05/07/24 05:00 98.0 90 20 117/72 (87) 99 98.0 05/06/24 20:00 Room Air* 0 21 General Appeara: Well developed, Well nourished, Normal Appearance Neuro/Mental St: Alert, Oriented Appearance: Appropriate appearance, Appropriate insight Eye contact/ Speech: Cooperative, Good eye contact, Normal speech Skin Exam: Normal inspection, Normal color, Warm/dry Labs/Xrays [place] [address] Ph: [phone] DIAGNOSTIC IMAGING Diagnostic Imaging Report : [id number] Signed PATIENT: NEGAR GAMBOACT: [id number] UNIT: [id number] : 1975 LOC: ER ROOM / BED: / AGE / SEX: 49 / F ADM STATUS: REG ER SERVICE 5 ORDERING PHYSICIAN: LIZZETTE CELAYA MD PROCEDURE(s): ABPL - CT AB PEL WO CON-NO ORAL OR IV REASON: better evaluate x-ray findings ORDER NUMBER(s): [id number], ACCESSION NUMBER(s): [id number] Examination: ABPL CLINICAL INDICATION: better evaluate x-ray findings COMPARISON: None. CONTRAST USED: None. TECHNIQUE: A plain CT study of the abdomen and pelvis is performed. The examination was performed with [address] scan done according to ALARA (As Low as Reasonably Achievable). Multiplanar reconstructions were obtained. FINDINGS: CT ABDOMEN: Lung Base: The evaluation of lung bases demonstrates no focal infiltrates or pleural effusion. Posterobasal dependent densities are seen in both lungs. Unenhanced Liver: The liver is normal in size. Mild hepatic steatosis. There is no intrahepatic biliary radicle dilatation. Gallbladder: The gallbladder is distended and shows a 23 mm sized hyperdense lamellated calculus within. The common bile duct is not dilated. Unenhanced Pancreas: The pancreas is normal in size and shape. No focal lesion is seen within. The peripancreatic fat-planes are normal. Unenhanced Spleen: The spleen is normal in size and does not show any focal abnormality. Retroperitoneum: Both adrenal glands are normal in size and morphology in this unenhanced CT scan. There is no significant retroperitoneal lymphadenopathy. The kidneys are normal in size with no hydronephrosis. A 6 mm obstructing calculus is seen in the right upper ureter causing mild upstream hydroureteronephrosis. Mild perinephric fat stranding is noted on the right side. Vessels: Aorta, IVC and the mesenteric vessels cannot be commented in this unenhanced CT scan. Stomach and Bowel: The bowel loops are unremarkable. There is no ascites. Small paraumbilical hernia is noted containing omental fat, size of the defect is 6 mm. Skeletal System: Mild degenerative changes are seen in the thoracolumbar spine. CT PELVIS: Appendix: The appendix is unremarkable in appearance. Colon: Multiple tiny diverticuli are seen along the ascending, transverse, descending, sigmoid colon and rectum. Bladder: The urinary bladder is unremarkable. Pelvic Organs: Uterus and both ovaries appear normal. No pelvic lymphadenopathy is identified. No abnormal fluid collection is seen. IMPRESSION: 1. No abdominal mass or adenopathy. 2. No ascites. 3. No free air or inflammatory changes. 4. Obstructing right upper ureteric calculus causing mild back pressure changes. 5. Mild hepatic steatosis. 6. Small paraumbilical hernia is noted containing omental fat. 7. Colonic diverticulosis without evidence of diverticulitis. 8. Cholelithiasis without evidence of cholecystitis. Electronically Signed 05/06/2024 04:08 Idalia Tsai ATED BY: JANINA MICHEL MD DICTATED DATE/TIME: 05/06/24407 SIGNED BY: JANINA MICHEL MD SIGNED DATE/TIME: 05/06/24407 CC: Labs Test 05/07/24 04:38 05/05/24 21:20 05/05/24 21:07 Range/Units White Blood Count 9.4 4.4-10.8 10^3/uL Red Blood Count 3.95 L 4.0-5.20 10^6/uL Hemoglobin 13.0 12.2-16.2 g/dL Hematocrit 36.3 # 36.0-46.0 % Mean Corpuscular Volume 91.8 80.0-100.0 fL Mean Corpuscular Hemoglobin 32.8 H 28.0-32.0 pg Mean Corpuscular Hemoglobin Concent 35.7 32.0-36.0 g/dL Red Cell Distribution Width 12.6 11.8-14.3 % Platelet Count 271 140-450 10^3/uL Mean Platelet Volume 7.8 6.9-10.8 fL Neutrophils (%) (Auto) 62.1 37.0-80.0 % Lymphocytes (%) (Auto) 28.0 10.0-50.0 % Monocytes (%) (Auto) 7.4 0.0-12.0 % Eosinophils (%) (Auto) 2.1 0.0-7.0 % Basophils (%) (Auto) 0.4 0.0-2.0 % Neutrophils # (Auto) 5.9 1.6-8.6 10 ^3/uL Lymphocytes # (Auto) 2.6 0.4-5.4 10 ^3/uL Monocytes # (Auto) 0.7 0-1.3 10 ^3/uL Eosinophils # (Auto) 0.2 0-0.8 10 ^3/uL Basophils # (Auto) 0 0-0.2 10 ^3/uL Nucleated Red Blood Cells 0.1 % Sodium Level 143 136-145 mmol/L Potassium Level 3.9 3.5-5.1 mmol/L Chloride Level 113 H 98-107 mmol/L Carbon Dioxide Level 22 20-31 mmol/L Anion Gap 8 5-15 Blood Urea Nitrogen 12 9-23 mg/dL Creatinine 0.75 0.550-1.02 mg/dL Glomerular Filtration Rate Calc 99 >90 mL/min BUN/Creatinine Ratio 16.0 10.0-20.0 Serum Glucose 101 74-106 mg/dL Calcium Level 8.6 L 8.7-10.4 mg/dL Total Bilirubin 0.4 0.2-1.0 mg/dL Aspartate Amino Transferase (AST) 13 13-40 U/L Alanine Aminotransferase (ALT) 19 7-40 U/L Alkaline Phosphatase 51 46-116 U/L Total Protein 5.8 5.7-8.2 g/dL Albumin 3.4 3.2-4.8 g/dL Urine Color Colorless Yellow Urine Clarity Clear Clear Urine pH 7.0 5.0-9.0 Urine Specific [place] 1.009 1.001-1.035 Urine Protein Negative Negative Urine Ketones Negative Negative Urine Blood 1+ H Negative /uL Urine Nitrite Negative Negative Urine Bilirubin Negative Negative Urine Urobilinogen Normal Negative mg/dL Urine Leukocyte Esterase Negative Negative /uL Urine RBC 8 0 - 4 /hpf Urine WBC 1 0 - 5 /hpf Urine Squamous Epithelial Cells Few <5 /hpf Urine Bacteria Few H None Seen /hpf Urine Glucose Normal Normal mg/dL Lipase 46 12-53 U/L Assessment/Plan Problem List: (1) Ureteral stone with hydronephrosis Plan pain meds prn outpt ESWL TBA Plan discussed with: Patient, Other CHRISTIANO STOKES NP May 07, 2024 08:34
--- NOTE | 2024-05-07 11:30 | DVHPN2 ---
Progress Note - Dictate Date Seen: May 07, 2024 Medical Necessity Reason Pt with a Central, PICC or Fol: No vital signs Vital Sign Date Time Temp Pulse Resp B/P (MAP) Pulse Ox O2 Delivery O2 Flow Rate FiO2 05/07/24 09:00 97.7 89 16 140/85 (103) 98 97.7 05/06/24 20:00 Room Air* 0 21 Total Intake and Output 05/06/24 05/06/24 05/07/24 15:00 23:00 07:00 Intake Total 240 ml 500 ml Balance 240 ml 500 ml medications Current Medications Medications Dose Ordered Sig/Debbie Route Start Time Stop Time Status Last Admin Dose Admin Sodium Chloride 1,000 ml @ 120 mls/hr Q8H20M IV 05/06/24 06:30 05/07/24 06:23 120 MLS/HR Acetaminophen 325 mg Q4HP PRN PO 05/06/24 06:30 Acetaminophen/ Hydrocodone Bitart 1 tab Q4HP PRN PO 05/06/24 06:30 05/06/24 14:08 1 TAB Ondansetron HCl 4 mg Q4HP PRN IV 05/06/24 06:30 Morphine Sulfate 2 mg Q4HPRN PRN IV 05/06/24 06:30 Nitroglycerin 0.4 mg Q5MINP PRN SL 05/06/24 06:30 Morphine Sulfate 2 mg Q30M PRN IV 05/06/24 06:30 Tamsulosin HCl 0.4 mg QPM PO 05/06/24 18:00 05/06/24 18:02 0.4 MG objective General Appearance: alert, no distress HEENT: EOMI, PERRLA, normal external inspect of ears, no icterus, no nasal drainage Neck: no carotid bruit, no jugular venous distention (JVD), no lymphadenopathy Chest: normal thorax Respiratory: clear to auscultation, normal air movement Cardiovascular: regular rate and rhythm, no diastolic murmur, no jugular venous distention (JVD), no rub, no systolic murmur Abdominal: soft, no hepatomegaly, no mass, no splenomegaly, no tenderness Genitourinary: grossly normal external Musculoskeletal: no joint tenderness, no swelling Extremities: normal pulses, no calf tenderness, no clubbing, no cyanosis, no edema Skin: no bruising, no jaundice, no rash Neurological: alert, No focal deficit laboratory and microbiology Laboratory Tests 05/07/24 04:38 Test 05/07/24 04:38 Range/Units Serum Glucose 101 74-106 mg/dL Problem List 1. Acute cystitis without hematuria Monitor, flomax 2. Ureteral stone with hydronephrosis Monitor, urology consult, prn pain meds 3. Dehydration Monitor, IV fluids 4. Hypokalemia Monitor, replace electrolytes 5. HLD Monitor, restart home meds, DVT prophylaxis, PPI Assessment/Plan Subjective: Patient is awake and alert. Objective: Patient was admitted for abdominal pain, most likely related to calculus found in urethra and UTI. Patient was seen by urology, and they are recommending outpatient ESWL to be determined at a later date. Patient had hypokalemia; potassium has improved to 3.9. Plan: Continue IV fluids, continue Flomax, repeat imaging to be ordered in the AM. Possible discharge tomorrow. Plan discussed with: Patient, Other VERA DHILLON NP May 07, 2024 11:30
[2024-05-08] VITALS (7 sets, daily range): BP systolic 117–151; BP diastolic 65–90; PULSE 63–84; RESP 16–20; TEMP 97.5–98.6; O2SAT 96–100
--- NOTE | 2024-05-08 09:48 | DVHPN2 ---
Progress Note - Dictate Date Seen: May 08, 2024 Medical Necessity Reason Pt with a Central, PICC or Fol: No vital signs Vital Sign Date Time Temp Pulse Resp B/P (MAP) Pulse Ox O2 Delivery O2 Flow Rate FiO2 05/08/24 09:00 98.0 77 16 138/89 (105) 98 98.0 05/08/24 08:01 Room Air* 0 21 Total Intake and Output 05/07/24 05/07/24 05/08/24 15:00 23:00 07:00 Intake Total 600 ml 1520 ml 820 ml Balance 600 ml 1520 ml 820 ml medications Current Medications Medications Dose Ordered Sig/Debbie Route Start Time Stop Time Status Last Admin Dose Admin Sodium Chloride 1,000 ml @ 120 mls/hr Q8H20M IV 05/06/24 06:30 05/08/24 08:30 120 MLS/HR Acetaminophen 325 mg Q4HP PRN PO 05/06/24 06:30 Acetaminophen/ Hydrocodone Bitart 1 tab Q4HP PRN PO 05/06/24 06:30 05/08/24 09:02 1 TAB Ondansetron HCl 4 mg Q4HP PRN IV 05/06/24 06:30 Morphine Sulfate 2 mg Q4HPRN PRN IV 05/06/24 06:30 Nitroglycerin 0.4 mg Q5MINP PRN SL 05/06/24 06:30 Morphine Sulfate 2 mg Q30M PRN IV 05/06/24 06:30 Tamsulosin HCl 0.4 mg QPM PO 05/06/24 18:00 05/07/24 17:03 0.4 MG objective General Appearance: alert, no distress HEENT: EOMI, PERRLA, normal external inspect of ears, no icterus, no nasal drainage Neck: no carotid bruit, no jugular venous distention (JVD), no lymphadenopathy Chest: normal thorax Respiratory: clear to auscultation, normal air movement Cardiovascular: regular rate and rhythm, no diastolic murmur, no jugular venous distention (JVD), no rub, no systolic murmur Abdominal: soft, no hepatomegaly, no mass, no splenomegaly, no tenderness Genitourinary: grossly normal external Musculoskeletal: no joint tenderness, no swelling Extremities: normal pulses, no calf tenderness, no clubbing, no cyanosis, no edema Skin: no bruising, no jaundice, no rash Neurological: alert, No focal deficit laboratory and microbiology Laboratory Tests 05/07/24 04:38 Test 05/07/24 04:38 Range/Units Serum Glucose 101 74-106 mg/dL Problem List 1. Acute cystitis without hematuria Monitor, flomax 2. Ureteral stone with hydronephrosis Monitor, urology consult, prn pain meds 3. Dehydration Monitor, IV fluids 4. Hypokalemia Monitor, replace electrolytes 5. HLD Monitor, restart home meds, DVT prophylaxis, PPI Assessment/Plan Subjective: Patient is awake and alert. Objective: The patient was admitted for abdominal pain related to ureteral stone and acute cystitis. Patient was started on IV antibiotics. Hypokalemia has resolved. Dehydration has resolved. Plan: Repeat CT of abdomen and pelvis to reevaluate your ureteral stone. Per urology outpatient lithotripsy to be determined. DC planning. Plan discussed with: Patient, Other VERA DHILLON NP May 08, 2024 09:48
--- NOTE | 2024-05-08 11:16 | DVH ---
Exam: CT CT AB PEL WO CON-NO ORAL OR IV History: re-eval ureteral stone Comparison Study: CT CT AB PEL WO CON-NO ORAL OR IV on DOS: 05/06/24 Technique: Multidetector spiral CT of the abdomen was performed from lung bases to pubic symphysis. Imaging was performed without IV contrast. Axial, coronal and sagittal multiplanar reformats were ob tained from the axial data set by the technologist. Radiation Dose : 1. Abdomen/Pelvis: CTDIvol 10.5 mGy, DLP 558.45 mGy*cm. Findings: Evaluation of solid organs is limited due to lack of intravenous contrast use. Lung Bases: No acute or significant lung base finding. Normal heart size. No pleural or pericardial effusion. Liver: The liver is normal in size. No focal lesions. Diffuse steatosis. Gallbladder and Biliary Tree: Cholelithiasis. Spleen: Unremarkable Pancreas: The pancreas is grossly normal in appearance. Adrenal Glands: Unremarkable Kidneys: Stable 6 mm stone in the upper right ureter causing mild hydroureteronephrosis. No left-side d stone or hydronephrosis. Bladder: Grossly unremarkable for degree of distention. Bowel: The stomach is grossly normal in appearance. Small bowel and colon are normal in caliber and d istribution. The appendix is not visualized; however, no secondary findings of acute appendicitis id entified. Colonic diverticulosis without evidence of diverticulitis. Ascites: Absent Lymphadenopathy: No mesenteric, retroperitoneal or periportal lymphadenopathy. Abdominal Wall and Mesentery: Stable small periumbilical hernia containing fat.. Vasculature: The visualized abdominal aorta is normal in size and caliber. Evaluation of abdominal a nd pelvic vessels is limited due to lack of intravenous contrast. Pelvic Organs: Unremarkable Musculoskeletal: No aggressive focal bony lesions, acute fractures or dislocation. IMPRESSION: 1. Stable 6 mm stone in the upper right ureter causing mild right-sided hydroureteronephrosis. No sig nificant interval change since May 06, 2024. Radiation optimization: All CT scans at this facility use at least one of these dose optimization armond hniques: automated exposure control mA and/or kV adjustment per patient size (includes targeted exam s where dose is matched to clinical indication) or iterative reconstruction.
--- NOTE | 2024-05-08 14:06 | DVH ---
CLINICAL HISTORY: Re-evaluate ureteral stone. TECHNIQUE: Multi sequence multi planar MRI images of the pelvis were obtained without IV contrast. COMPARISON: None FINDINGS: Uterus is anteverted. There are nabothian cysts in the cervix. Endometrial thickness measu res up to 6.5 mm, within normal limits for premenopausal. Small bilateral ovarian follicles. No free fluid visualized. Bladder is unremarkable. Distal ureters are not well evaluated on this exam, with n o gross abnormality identified along the expected courses of the distal ureters. No abnormality seen along the course of the urethra. Osseous structures are intact with no acute or suspicious abnormali ty identified. Visualized pelvic musculature, peroneal soft tissues, and inguinal soft tissues appear unremarkable. IMPRESSION: 1. No acute abnormality identified in the pelvis. 2. Nonacute findings as described above.
[2024-05-09 01:00] VITALS: BP 125/71; PULSE 75; RESP 17; TEMP 98.6; O2SAT 98
[2024-05-09 05:00] VITALS: BP 119/67; PULSE 70; RESP 16; TEMP 98.3; O2SAT 96
[2024-05-09] MEDS ORDERED: TAMS-35 PO (08:29)
--- NOTE | 2024-05-09 08:30 | DVHDS2 ---
Discharge Summary Date of Admission May 06, 2024 at 06:32 Date of Discharge: May 09, 2024 Labs/Diagnostic Data: Laboratory Results Test 05/07/24 04:38 05/05/24 21:20 05/05/24 21:07 White Blood Count 9.4 10^3/uL (4.4-10.8) Red Blood Count 3.95 10^6/uL (4.0-5.20) Hemoglobin 13.0 g/dL (12.2-16.2) Hematocrit 36.3 % (36.0-46.0) Mean Corpuscular Volume 91.8 fL (80.0-100.0) Mean Corpuscular Hemoglobin 32.8 pg (28.0-32.0) Mean Corpuscular Hemoglobin Concent 35.7 g/dL (32.0-36.0) Red Cell Distribution Width 12.6 % (11.8-14.3) Platelet Count 271 10^3/uL (140-450) Mean Platelet Volume 7.8 fL (6.9-10.8) Neutrophils (%) (Auto) 62.1 % (37.0-80.0) Lymphocytes (%) (Auto) 28.0 % (10.0-50.0) Monocytes (%) (Auto) 7.4 % (0.0-12.0) Eosinophils (%) (Auto) 2.1 % (0.0-7.0) Basophils (%) (Auto) 0.4 % (0.0-2.0) Neutrophils # (Auto) 5.9 10 ^3/uL (1.6-8.6) Lymphocytes # (Auto) 2.6 10 ^3/uL (0.4-5.4) Monocytes # (Auto) 0.7 10 ^3/uL (0-1.3) Eosinophils # (Auto) 0.2 10 ^3/uL (0-0.8) Basophils # (Auto) 0 10 ^3/uL (0-0.2) Nucleated Red Blood Cells 0.1 % Sodium Level 143 mmol/L (136-145) Potassium Level 3.9 mmol/L (3.5-5.1) Chloride Level 113 mmol/L (98-107) Carbon Dioxide Level 22 mmol/L (20-31) Anion Gap 8 (5-15) Blood Urea Nitrogen 12 mg/dL (9-23) Creatinine 0.75 mg/dL (0.550-1.02) Glomerular Filtration Rate Calc 99 mL/min (>90) BUN/Creatinine Ratio 16.0 (10.0-20.0) Serum Glucose 101 mg/dL (74-106) Calcium Level 8.6 mg/dL (8.7-10.4) Total Bilirubin 0.4 mg/dL (0.2-1.0) Aspartate Amino Transferase (AST) 13 U/L (13-40) Alanine Aminotransferase (ALT) 19 U/L (7-40) Alkaline Phosphatase 51 U/L (46-116) Total Protein 5.8 g/dL (5.7-8.2) Albumin 3.4 g/dL (3.2-4.8) Urine Color Colorless (Yellow) Urine Clarity Clear (Clear) Urine pH 7.0 (5.0-9.0) Urine Specific [employer] 1.009 (1.001-1.035) Urine Protein Negative (Negative) Urine Ketones Negative (Negative) Urine Blood 1+ /uL (Negative) Urine Nitrite Negative (Negative) Urine Bilirubin Negative (Negative) Urine Urobilinogen Normal mg/dL (Negative) Urine Leukocyte Esterase Negative /uL (Negative) Urine RBC 8 /hpf (0 - 4) Urine WBC 1 /hpf (0 - 5) Urine Squamous Epithelial Cells Few /hpf (<5) Urine Bacteria Few /hpf (None Seen) Urine Glucose Normal mg/dL (Normal) Lipase 46 U/L (12-53) Other Laboratory Tests 05/07/24 04:38 Final Diagnosis/Problems List Ureteral stone causing mild hydronephrosis Mild UTI Discharge Disposition: Home Discharge Instruct/Medications Diet: Regular Activity: Bed rest Follow Up/Referral: Needs referral for outpatient urology Dr. Arden Tesfaye for lithotripsy Discharge Statement: "Patient was advised to return to the ER or call 911 if any headaches, dizziness, shortness of breath, chest pain, abdominal pain, bleeding, fevers, or worsening of medical condition. Patient was counseled about treatment plan, medications, possible side effects, patientverbalized understanding. All questions were answered to the best of my ability. This discharge took greater then 30 minutes in planning, reviewing documentation, counseling the patient, and discussing with other team members." ASSESSMENT ASSESSMENT Assessment Ureteral stone causing mild hydronephrosis Mild UTI VERA DHILLON NP May 09, 2024 08:30
[2024-05-09 09:14] VITALS: BP 124/64; PULSE 80; RESP 19; TEMP 98.6; O2SAT 98
[2024-05-09 10:20] VITALS: BP 124/64; PULSE 80; RESP 19; TEMP 98.6; O2SAT 98
== END 2024-05-09 11:25 | disposition home or self-care (01) | DRG 463 ==
LOC: ER 20:47 → OVERFLOW 05-06 06:32 → WEST WING 05-06 17:12
PROVIDERS: ADMIT Internal Medicine; ATTEND Nurse Practitioner
DX: N13.6 Pyonephrosis (principal); K76.0 Fatty (change of) liver, not elsewhere classified; E78.5 Hyperlipidemia, unspecified; N21.1 Calculus in urethra; E86.0 Dehydration; E87.6 Hypokalemia; K21.9 Gastro-esophageal reflux disease without esophagitis; Z79.899 Other long term (current) drug therapy
CPT/HCPCS: 36415; 72195; 74018; 74176; 80053; 81001; 83690; 85025; 96361; 96374; 96375; 99291; G0378; J1885; J2405; J3490

== ENCOUNTER 2024-09-20 20:37 | Emergency (ER) | payer OTHER ==
[~2024-09-20] VITALS: Ht 144.8 cm; Wt 62.3 kg
[~2024-09-20 20:37] MED LIST changes: +TAMS-35 PO
--- NOTE | 2024-09-20 21:49 | DVH ---
XY CHEST TWO VIEWS ROUTINE CLINICAL HISTORY: COUGH COMPARISON: None TECHNIQUE: Frontal and lateral view of the chest was obtained FINDINGS: 1. There are slightly 2. prominent peribronchial 3. markings 4. in the perihilar 5. region 6. . Heart size 7. is normal trachea 8. is midline 9. there are no consolidates or 10. effusions. 11. IMPRESSION: 1. Slightly prominent bilateral peribronchial markings suggesting bronchitis or possibly asthma. Elayne l infiltrate not ruled out
[2024-09-20 23:41] VITALS: BP 149/98; PULSE 97; RESP 16; TEMP 98.7; O2SAT 95
[2024-09-20] MEDS ORDERED: AZIT-43 PO (23:44)
[2024-09-20] MEDS ORDERED: PRED20TA2 PO (23:44)
--- NOTE | 2024-09-20 23:44 | ED.PDOC ---
SOB-HPI HPI Comments 49-year-old female presents to ER with complaints of cough x2 weeks. Patient reports she has been experiencing cough, congestion and runny nose x2 weeks. States that the cough was initially dry but turned productive with yellow phlegm x8 days. Denies use of medications for current symptoms. Patient presents to ER ambulatory on arrival, in no distress. Denies fever, body aches, chills, shortness of breath, hemoptysis, chest pain, sore throat, known exposure to sick contacts or any further symptoms/complaints Chief Complaint: Cough Time Seen by MD: 20:59 Primary Care Provider: UNKNOWN Reviewed notes: Nurses Notes, Medications, Allergies Information Source: Patient Mode of Arrival: Ambulatory Past Medical History PAST MEDICAL HISTORY: UTI'S Surgical History: Denies all surgeries COUNT ROOM CLERK History: No Pertinent COUNT ROOM CLERK History Family History Family History: Reviewed,noncontributory to illness Social History Smoker: Non-Smoker Alcohol: Denies ETOH Use Drugs: Denies Drug Use Lives In: Home Constitutional: denies: chills, diaphoresis, fatigue, fever, malaise, sweats, weakness, others EENTM: reports: others ( STATED IN HPI) Respiratory: reports: others ( STATED IN HPI) Cardiovascular: denies: chest pain, dizzy spells, diaphoresis, Dyspnea on exertion, edema, irregular heart beat, left arm pain, lightheadedness, palpitations, PND, syncope, others Gastrointestinal: denies: abdomen distended, abdominal pain, blood streaked bowels, constipated, diarrhea, dysphagia, difficulty swallowing, hematemesis, melena, nausea, poor appetite, poor fluid intake, rectal bleeding, rectal pain, vomiting, others Genitourinary: denies: abnormal vagina bleeding, burning, dyspareunia, dysuria, flank pain, frequency, hematuria, incontinence, pain, , vagina discharge, urgency, others Neurological: denies: dizziness, fainting, headache, left sided numbness, left sided weakness, numbness, paresthesia, pre-existing deficit, right sided numbness, right sided weakness, seizure, speech problems, tingling, tremors, weakness, others Musculoskeletal: denies: back pain, gout, joint pain, joint swelling, muscle pain, muscle stiffness, neck pain, others Integumetry: denies: bruises, change in color, change in hair/nails, dryness, laceration, lesions, lumps, rash, wounds, others Allergic/Immunocompromised: denies: Difficulty Healing, Frequent Infections, Hives, Itching, others Hematologic/Lymphatic: denies: anemia, blood clots, easy bleeding, easy bruising, swollen glands, others Endocrine: denies: excessive hunger, excessive sweating, excessive thirst, excessive urination, flushing, intolerance to cold, intolerance to heat, unexplained weight gain, unexplained weight loss, others Psychiatric: denies: anxiety, bipolar disorder, depression, hopeless, panic disorder, schizophrenia, sleepless, suicidal, others Physical Exam General Appearance: No Apparent Distress HEENT: Normal ENT Inspection, PERRL/EOMI, Pharynx Normal, TMs Normal Neck: Full Range of Motion, Non-Tender, Normal Respiratory: Chest Non-Tender, Lungs Clear, No Accessory Muscle Use, No Respiratory Distress, Normal Breath Sounds Cardiovascular: No Murmur, No Gallop, Regular Rate/Rhythm Breast Exam: Deferred Gastrointestinal: NOT DONE Genitalia: Deferred Pelvic: Deferred Rectal: Deferred Extremities: Normal capillary refill, Normal range of motion Neurologic: Alert, No Motor Deficits, Normal Affect, Normal Mood, No Sensory Deficits Cerebellar Function: Normal Reflexes: Normal Skin: Dry, Normal Color, Warm Peripheral Pulses: 2+ Radial (R), 2+ Radial (L), 2+ Brachial (R), 2+ Brachial (L) Lymphatic: No Adenopathy Was a procedure done? Was a procedure done?: No Sedation Sedation?: No Differential Dx Differential Diagnosis: Pneumonia, Pulmonary Embolism, Respiratory Distress, Pharyngitis X-Ray, Labs, Meds, VS Vital Signs Date Time Temp Pulse Resp B/P (MAP) Pulse Ox O2 Delivery O2 Flow Rate FiO2 09/20/24 23:41 Room Air* 0 21 09/20/24 23:41 Room Air* 0 21 09/20/24 20:47 98.7 97 16 149/98 (115) 95 98.7 PATIENT: NEGAR GAMBOACT: [id number]: [id number] : 1975 LOC: ER ROOM / BED: / AGE / SEX: 49 / F ADM STATUS: REG ER SERVICE 58 ORDERING PHYSICIAN: YVONNE RAMOS PROCEDURE(s): CXR2 - CHEST TWO VIEWS ROUTINE REASON: COUGH ORDER NUMBER(s): [id number], ACCESSION NUMBER(s): [id number] XY CHEST TWO VIEWS ROUTINE CLINICAL HISTORY: COUGH COMPARISON: None TECHNIQUE: Frontal and lateral view of the chest was obtained FINDINGS: 1. There are slightly 2. prominent peribronchial 3. markings 4. in the perihilar 5. region 6. . Heart size 7. is normal trachea 8. is midline 9. there are no consolidates or 10. effusions. 11. IMPRESSION: 1. Slightly prominent bilateral peribronchial markings suggesting bronchitis or possibly asthma. Viral infiltrate not ruled out ATED BY: HASMUKH ANGEL MD DICTATED DATE/TIME: 09/20/242146 SIGNED BY: HASMUKH ANGEL MD SIGNED DATE/TIME: 09/20/242146 CC: Chest x-ray reviewed Previous chart history reviewed Advised to drink plenty of fluids Patient in no distress during ER visit/prior to discharge Advised to follow up with PCP in 1-2 days Patient verbalized understanding and agreeable with current plan of care Advised to return to ER immediately if symptoms worsen Images Reviewed?: Images reviewed and evaluated by me Time of 1ST Reevaluation: 23:20 Reevaluation 1ST: N/A Patient Education/Counseling: Diagnosis, Treatment, Prognosis, Need For Follow Up Family Education/Counseling: No Family Present Departure 1 Departure Time of Disposition: 23:42 Impression: Primary Impression: Acute bronchitis Qualified Codes: J20.9 - Acute bronchitis, unspecified Disposition: HOME / SELF CARE / HOMELESS Condition: Stable e-Prescriptions Albuterol Sulfate (VENTOLIN MDI) 90 Mcg Ih 2 PUFF IN Q4HPRN, #1 INH 0 Refills Prov: YVONNE RAMOS 09/20/24 Prednisone (Prednisone) 20 Mg Tab 20 MG PO BID for 5 Days, #10 TAB 0 Refills Prov: YVONNE RAMOS 09/20/24 Azithromycin (Azithromycin) 250 Mg Tab 250 MG PO DAILY MDD 500 for 5 Days, #6 TAB 0 Refills 2 TABLETS ORALLY ON DAY ONE, THEN 1 TABLET ORALLY DAILY FOR 4 DAYS Prov: YVONNE RAMOS 09/20/24 Discharged With: Self Critical Care Note Critical Care Time?: No Stability Stability form required: No Heart Score Heart Score: Heart Score Response (Comments) Value History N/A 0 EKG N/A 0 Age N/A 0 Risk Factors N/A 0 Troponin N/A 0 Total 0 YVONNE RAMOS Sep 20, 2024 23:44
[2024-09-20] MEDS ORDERED: ALBUAER3 IN (23:47)
== END 2024-09-20 23:50 | disposition home or self-care (01) ==
LOC: ER 20:37
DX: J20.9 Acute bronchitis, unspecified (principal)
CPT/HCPCS: 71046